=== PATIENT | female | born 1985 ===

== ENCOUNTER 2016-11-06 08:31 | Day surgery (SDC) | payer OTHER ==
[~2016-11-06 08:31] MED LIST: Lactated Ringers 1,000 ML IV SCH; Lidocaine 2% 5 ML SDV ONE; Propofol 200 MG/20 ML SDV ONE; fentaNYL 100 MCG/2 ML SDV ONE
--- NOTE | 2016-11-06 08:56 | PCM.PREANE ---
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 Respiratory: Reports: no symptoms Cardiovascular: Reports: no symptoms GI: Reports: nausea Other: Reports: none - PHYSICAL ASSESSMENT Height: 1.55 m Weight: 54.885 kg ASA Class: 2 Mental Status: alert & oriented x3 Airway Class: Mallampati = 2 Dentition: Reports: normal dentition Thyro-Mental Finger Breadths: 3 Mouth Opening Finger Breadths: 2 ROM/Head Extension: full Respiratory Status: lungs clear to auscultation bilaterally Cardiovascular Status: regular rate & rhythm, normal S1, S2, no murmur, blood pressure WNL - ALLERGIES Allergies/Adverse Reactions: Allergies Allergy/AdvReac Type Severity Reaction Status Date / Time No Known Allergies Allergy Verified 10/05/16 21:18 - BLOOD Blood Available: No - ANESTHESIA PLAN Preop Beta Barbara: No Anesthesia Type Planned: MAC - ACKNOWLEDGEMENTS Pt an appropriate candidate for the planned anesthesia: Yes Alternatives and risks of anesthesia discussed w pt/guardian: Yes Pt/Guardian understands and agree with anesthesia plan: Yes PreAnesthesia Questionnaire HEENT History: Reports: None Cardiovascular History: Reports: None Respiratory History: Reports: None Gastrointestinal History: Reports: GERD, Helicobacter pylori Genitourinary History: Reports: None 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: Musculoskeletal History: Reports: Back pain, chronic, Other (see below) Other Musculoskeletal History: spondylosis at L5 level Psychiatric History: Reports: Anxiety Endocrine/Metabolic History: Reports: None Dermatologic History: Reports: None - Infectious Disease History Infectious Disease History: Reports: None - Past Surgical History Head Surgeries/Procedures: Reports: None HEENT Surgical History: Reports: Oral surgery Cardiovascular Surgical History: Reports: None Female Surgical History: Reports: None - SUBSTANCE USE Smoking Status *Q: Never Smoker Second Hand Smoke Exposure: No Recreational Drug Use History: No - HOME MEDS Home Medications: Home Meds Ethinyl Estradiol/Drospirenone [Loryna 3 MG-0.02 MG] 1 tab PO DAILY 11/03/16 [ History] Multivitamin [Gummi Bear Multivitamin] 1 tab.chew PO DAILY 11/03/16 [History] - CURRENT (IN HOUSE) MEDS Current Meds: Current Medications Lactated Ringer's (Ringers, Lactated) 1,000 mls @ 125 mls/hr IV ASDIRECTED CAROLE Discontinued Medications Fentanyl (Sublimaze) Confirm Administered Dose 100 mcg .ROUTE .STK-MED ONE Stop: 11/06/16 08:11 Lidocaine (Xylocaine-Mpf 2%) Confirm Administered Dose 5 ml .ROUTE .STK-MED ONE Stop: 11/06/16 08:11 Propofol (Diprivan 20 Ml) Confirm Administered Dose 400 mg .ROUTE .STK-MED ONE Stop: 11/06/16 08:11
[2016-11-06] MEDS ORDERED: Morphine 10 MG/ML Syringe IVPUSH PRN (12:02)
[2016-11-06] MEDS ORDERED: Ondansetron 4 MG/2 ML SDV IVPUSH PRN (12:02)
[2016-11-06] MEDS ORDERED: Acetaminophen/HYDROcodone 325-5 MG Tab PO PRN (12:02)
--- NOTE | 2016-11-06 12:04 | PCM.OPNOTE ---
- General Post-Op/Procedure Note Operative Procedure(s): Esophagogastroduodenoscopy with biopsy Pre Op Diagnosis: Chronic epigastric pain. History of H., pylori gastritis. Post-Op Diagnosis: Mild chronic gastritis Anesthesia Technique: MAC (ASA II) Primary Surgeon: Aubrey Koch [employer] Ticket Seller: Jocelin Leo Condition: Good Free Text/Narrative:: Dictation [id number]
[2016-11-06] MEDS ORDERED: Lactated Ringers 1,000 ML IV SCH (12:15)
--- NOTE | 2016-11-06 12:23 | OR ---
SURGEON: Aubrey Koch M.D. DATE OF PROCEDURE: 11/06/2016 OPERATION PERFORMED: Esophagogastroduodenoscopy with biopsy. SUPERVISOR [employer] SERVICES: Dr. Leo. ANESTHESIA: MAC. ASA CLASSIFICATION: II. PREOPERATIVE DIAGNOSES: 1. Epigastric pain. 2. Heartburn. 3. History of Helicobacter pylori. POSTOPERATIVE DIAGNOSES: 1. Mild chronic gastritis. 2. No acute ulcerations. DESCRIPTION OF PROCEDURE: The patient was taken to the endoscopy room and positioned on the endoscopy table in left lateral decubitus position. Time-out was called for appropriate identification of the patient and procedure. Monitored anesthesia care was provided. The bite-block was placed between the patient's teeth. The gastroscope was inserted into the mouth and advanced without difficulty through the esophagus and stomach into the duodenum, where examination was carried out in a retrograde fashion. Duodenum shows no acute inflammatory changes or ulcerations. The stomach shows a mild gastritis. Antral biopsies were obtained to look for the presence of Helicobacter pylori. The gastroscope was retroflexed to visualize the proximal stomach. No ulcerations were noted. No tumors or polyps were seen. The gastroscope was straightened and slowly withdrawn aspirating the stomach. GE junction was well defined. No acute inflammatory changes were noted at the gastroesophageal junction. The esophagus demonstrated good contractility. No mid or proximal lesions were identified. The vocal cords were visualized as the scope was withdrawn and noted to move symmetrically. The gastroscope was then removed with the patient having tolerated the procedure well. She was taken to recovery room in stable condition. JOSE M / ULISES /[id number]
--- NOTE | 2016-11-06 12:38 | PCM48HPAN ---
Post Anesthesia Note - EVALUATION WITHIN 48HRS OF ANESTHETIC Vital Signs in Normal Range: Yes Patient Participated in Evaluation: Yes Respiratory Function Stable: Yes Airway Patent: Yes Cardiovascular Function Stable: Yes Hydration Status Stable: Yes Pain Control Satisfactory: Yes Nausea and Vomiting Control Satisfactory: Yes Mental Status Recovered: Yes
--- NOTE | 2016-11-06 12:38 | PCM.POSTAN ---
POST ANESTHESIA ASSESSMENT - MENTAL STATUS Mental Status: alert, oriented - RESPIRATORY Respiratory Status: respiratory rate WNL, airway patent, O2 saturation stable - CARDIOVASCULAR CV Status: pulse rate WNL, blood pressure stable - GASTROINTESTINAL GI Status: no symptoms - PAIN Pain Score: 0 - POST OP HYDRATION Hydration Status: adequate & stable
[2016-11-06 14:51] VITALS: BP 116/69
== END 2016-11-06 12:45 | disposition home or self-care (01) ==
LOC: MW.SDS 08:31
PROVIDERS: ATTEND Surgery
PROC: 0DB68ZX Excision of Stomach, Via Natural or Artificial Opening Endoscopic, Diagnostic (ICD-10-PCS; principal; 2016-11-06)
DX: K29.70 Gastritis, unspecified, without bleeding (principal)
CPT/HCPCS: 43239; 81025; 88305; 88312; J3010; J7120; 00740; J2704

== ENCOUNTER → 2016-11-25 | Outpatient (CLI) | payer OTHER ==
[2016-11-25 12:36] LABS: CHLORIDE,CL 108 mmol/L (98-110); SODIUM,NA 139 mmol/L (136-146)
== END ==
LOC: MW.CHIM 11:46
PROVIDERS: ATTEND Internal Medicine
DX: R10.13 Epigastric pain (principal); R12 Heartburn; K29.50 Unspecified chronic gastritis without bleeding
CPT/HCPCS: 36415; 80053; 80061; 81001; 82150; 83036; 83540; 84439; 84443; 85025; 85652; 86140

== ENCOUNTER → 2017-01-16 | Outpatient (CLI) | payer OTHER ==
[2017-01-26 16:08] LABS: HPV 16 Not Detected (NOTDET); HPV 18 Not Detected (NOTDET)
== END ==
LOC: MW.CHOBGYN 12:07
PROVIDERS: ATTEND Obstetrics & Gynecology
DX: Z12.4 Encounter for screening for malignant neoplasm of cervix (principal); N89.8 Other specified noninflammatory disorders of vagina
CPT/HCPCS: 87480; 87510; 87624; 87660; G0145